=== PATIENT | female | born 1945 | race Hispanic/Latino ===

== ENCOUNTER 2017-01-26 13:02 | Outpatient (CLI) | payer MEDICARE, OTHER ==
--- NOTE | 2017-01-26 18:27 | XRay Report ---
FINAL REPORT PROCEDURE: XR SPINE LUMBOSACRAL 4+V TECHNIQUE: Four views of the lumbar spine are obtained HISTORY: LOW BACK PAIN COMPARISON: No prior studies are available for comparison. FINDINGS: Mild dextroscoliosis at L3-4 is probably old given mild lateral osteophytes at this level. No compression fracture or spondylolisthesis is seen. No pars defect is seen. Posterior osteophytes are seen at L4-5 and L5-S1 with hypertrophic facet changes at these levels. IMPRESSION: Mild scoliosis and moderate arthritic changes are seen in the lower lumbar spine.
== END 2017-01-26 13:03 | disposition home or self-care (01) ==
LOC: XRAY 13:02
PROVIDERS: ATTEND Internal Medicine
DX: M47.896 Other spondylosis, lumbar region (principal); M41.86 Other forms of scoliosis, lumbar region
CPT/HCPCS: 72110

== ENCOUNTER 2019-10-11 17:02 | Emergency (ER) | payer MEDICARE, OTHER ==
--- NOTE | 2019-10-11 23:22 | Emergency Department Report ---
ED Fever HPI - General Chief Complaint: Upper Respiratory Infection Stated Complaint: POSS PNEUMONIA/SENT FROM PUI?: Yes Source: patient Exam Limitations: no limitations - History of Present Illness Initial Comments: This is a 74-year-old female with history of major depressive disorder and bronchitis who presents with fever cough shortness of breath for 2 days. She was evaluated at urgent care center. She was referred to the emergency department for evaluation for pneumonia. She was told that she had pneumonia and a possible lung mass. [facility] and lung issues. She stopped smoking cigarettes years ago. She feels better after receiving breathing treatment and steroid at urgent care center. No known sick contacts. No recent travel. She lives with her boyfriend and special needs son. PCP Dr. Gonzalez Timing/Duration: other (2 days) Fever Severity/Quality: subjective Fever Therapy SETTER MACHINE: other (Nebulizer therapy, steroid at urgent care center) Associated Symptoms: cough, muscle aches, shortness of breath, other (Clear sputum production) ED Review of Systems ROS: Stated complaint: POSS PNEUMONIA/SENT FROM Other details as noted in HPI Comment: All other systems reviewed and negative Constitutional: chills, fever, malaise Respiratory: cough, shortness of breath, wheezing Cardiovascular: denies: chest pain Gastrointestinal: denies: nausea, vomiting ED Past Medical Hx - Past Medical History Previous Medical History?: Yes Additional medical history: Bronchitis, major depressive disorder - Surgical History Past Surgical History?: Yes Additional Surgical History: abdominal surgery - Social History Smoking Status: Former Smoker Substance Use Type: None - Medications Home Medications: Home Medications Medication Instructions Recorded Confirmed Last Taken Type Azithromycin [Zithromax TAB] 1 tab PO QDAY 4 Days #4 tablet 10/12/19 Unknown Rx Prednisone [predniSONE 10 mg 10 mg PO .TAPER #1 tab.ds.pk 10/12/19 Unknown Rx (6-Day Pack, 21 Tabs)] ED Physical Exam - General Limitations: No Limitations General appearance: alert, in no apparent distress - Head Head exam: Present: atraumatic, normocephalic - Eye Eye exam: Present: normal appearance - ENT ENT exam: Present: mucous membranes moist - Neck Neck exam: Present: normal inspection, full ROM - Respiratory Respiratory exam: Present: wheezes, prolonged expiratory, other (Loud expiratory wheezes heard best on the right). Absent: rales, rhonchi - Cardiovascular Cardiovascular Exam: Present: regular rate, normal rhythm, normal heart sounds. Absent: systolic murmur, diastolic murmur, rubs, gallop - GI/Abdominal GI/Abdominal exam: Present: soft, normal bowel sounds. Absent: distended, tenderness, guarding, rebound - Extremities Exam Extremities exam: Present: normal inspection - Neurological Exam Neurological exam: Present: alert, oriented X3 - Psychiatric Psychiatric exam: Present: normal affect, normal mood - Skin Skin exam: Present: warm, dry, intact, normal color. Absent: rash ED Course Vital Signs 10/11/19 10/11/19 10/11/19 17:19 23:20 23:23 Pulse Rate 104 H 139 H 71 Respiratory 18 16 20 Rate Blood Pressure Blood Pressure 162/97 155/64 [Right] O2 Sat by Pulse 91 96 96 Oximetry 10/11/19 10/11/19 10/12/19 23:30 23:46 00:00 Pulse Rate 87 75 73 Respiratory 16 15 15 Rate Blood Pressure 155/64 153/56 153/56 Blood Pressure [Right] O2 Sat by Pulse 96 94 90 Oximetry 10/12/19 10/12/19 00:15 00:30 Pulse Rate 76 80 Respiratory 13 15 Rate Blood Pressure 137/56 126/51 Blood Pressure [Right] O2 Sat by Pulse 92 96 Oximetry ED Medical Decision Making - Lab Data Result diagrams: 10/11/19 23:38 10/11/19 23:38 - Radiology Data Radiology results: report reviewed Chest radiograph: No evidence of acute pulmonary cardio process the lungs are clear of focal airspace disease or pleural effusion, parenchymal scarring noted in the right lung base unchanged compared to chest radiograph obtained 04/27/2010 - Medical Decision Making 1. Suspected COVID-19 infection. Patient had COVID-19 testing performed at urgent care center. She expects to have the results in 5 days. 2. Acute bronchitis exacerbated by COVID-19 infection: Patient will be treated with prescription for azithromycin and prednisone taper. She has a new MDI which is full of medicine at this time. Patient understands return precautions. She will follow-up with her PCP next available appointment. Patient is currently currently comfortable. Pulse ox 96% on room air. I suspect room air 91% hypoxic reading at triage was after ambulation. She is currently supine breathing comfortably. Vital Signs - 24 hr 10/11/19 10/11/19 10/11/19 17:19 23:20 23:23 Pulse Rate 104 H 139 H 71 Respiratory 18 16 20 Rate Blood Pressure Blood Pressure 162/97 155/64 [Right] O2 Sat by Pulse 91 96 96 Oximetry 10/11/19 10/11/19 10/12/19 23:30 23:46 00:00 Pulse Rate 87 75 73 Respiratory 16 15 15 Rate Blood Pressure 155/64 153/56 153/56 Blood Pressure [Right] O2 Sat by Pulse 96 94 90 Oximetry 10/12/19 10/12/19 00:15 00:30 Pulse Rate 76 80 Respiratory 13 15 Rate Blood Pressure 137/56 126/51 Blood Pressure [Right] O2 Sat by Pulse 92 96 Oximetry Critical care attestation.: If time is entered above; I have spent that time in minutes in the direct care of this critically ill patient, excluding procedure time. ED Disposition Clinical Impression: Suspected COVID-19 virus infection, Acute bronchitis Disposition: DC- TO HOME OR SELFCARE Is pt being admited?: No Does the pt Need Aspirin: No Condition: Stable Instructions: Acute Bronchitis (ED), COVID-19 Prescriptions: Prednisone [predniSONE 10 mg (6-Day Pack, 21 Tabs)] 10 mg PO .TAPER #1 tab.ds.pk Azithromycin [Zithromax TAB] 1 tab PO QDAY 4 Days #4 tablet Referrals: PRIMARY CARE, [Primary Care Provider] - 3-5 Days
[2019-10-12] MEDS ORDERED: cefTRIAXone/NS 2 GM/100 ML 2 GM/100 ML BAG IV SCH
[2019-10-12] MEDS ORDERED: AZITHROMYCIN 500 MG in SODIUM CHLORIDE 0.9% 250ML 250 ML IV SCH
--- NOTE | 2019-10-12 00:14 | XRay Report ---
CHEST 1 VIEW, 10/11/2019 11:34 PM CLINICAL INFORMATION/INDICATION: Cough. Fever. COMPARISON: Chest radiograph, 04/27/2010 FINDINGS: SUPPORT DEVICES: None. HEART: The cardiac silhouette is normal in size. LUNGS/PLEURA: The lungs are clear of focal airspace disease or significant pleural effusion. Parenchy mal scarring is again noted in the right lung apex and is unchanged. ADDITIONAL FINDINGS: No additional acute findings. IMPRESSION: 1. No evidence of acute cardiopulmonary process. Signer Name: Elenita Sanders MD Signed: 10/11/2019 6:07 PM Workstation Name: [id number]
[2019-10-12 00:27] LABS: Basophils % (Auto) 0.2 % (0.0-1.8); Eosinophils % (Auto) 8.1 % (0.0-4.3); Hematocrit 38.7 % (30.3-42.9); Hemoglobin 13.5 gm/dl (10.1-14.3); Lymphocytes # (Auto) 1.1 K/mm3 (1.2-5.4); Lymphocytes % (Auto) 8.6 % (13.4-35.0); Mean Corpuscular HGB Conc 35 % (30-34); Mean Corpuscular Volume 84 fl (79-97); Monocytes # (Auto) 0.1 K/mm3 (0.0-0.8); Monocytes % (Auto) 1.1 % (0.0-7.3); Platelet Count 269 K/mm3 (140-440); Red Blood Count 4.59 M/mm3 (3.65-5.03); Red Cell Distribution Width 13.7 % (13.2-15.2)
[2019-10-12 00:37] VITALS: BP 126/51
[2019-10-12 00:44] LABS: Alanine Aminotransferase 59 units/L (7-56); BUN/Creatinine Ratio 19; Blood Urea Nitrogen 15 mg/dL (7-17); Calcium 9.8 mg/dL (8.4-10.2); Hemolysis Index 2
== END 2019-10-12 00:45 | disposition home or self-care (01) ==
LOC: ED 17:02
DX: J20.9 Acute bronchitis, unspecified (principal); Z20.828 Contact with and (suspected) exposure to other viral communicable diseases; Z98.890 Other specified postprocedural states; Z87.891 Personal history of nicotine dependence; Z79.2 Long term (current) use of antibiotics; Z79.899 Other long term (current) drug therapy; Z88.8 Allergy status to other drugs, medicaments and biological substances
CPT/HCPCS: 36415; 71045; 80053; 82140; 82728; 82947; 83615; 84145; 85025; 85379; 86140; 87040; 96365; 96368; 99284; J0456; J0696; J7050